=== PATIENT | male | born 1990 | race Caucasian/White ===

== ENCOUNTER 2021-02-18 14:03 | Emergency (ER) | payer OTHER ==
[2021-02-18] MEDS ORDERED: KETOROLAC 60 MG/2 ML VIAL IM STA (14:20)
[2021-02-18 14:35] LABS: BASOPHILS % (AUTO) 0.2 %; EOSINOPHILS % (AUTO) 0.7 %; HGB - HEMOGLOBIN 15.2 g/dL (14.0-18.0); LYMPHOCYTES # (AUTO) 1.8 10^3/uL (1.5-3.5); LYMPHOCYTES % (AUTO) 33.8 %; MEAN CORPUSCULAR HGB CONC 34.5 g/dL (32.0-36.0); MEAN CORPUSCULAR VOLUME 89.6 fL (80.0-94.0); MONOCYTES # (AUTO) 0.4 10^3/uL (0.0-1.0); MONOCYTES % (AUTO) 7.9 %; NEUTROPHILS # (AUTO) 3.1 10^3/uL (1.5-6.6); NEUTROPHILS % (AUTO) 57.2 %; PLT - PLATELET COUNT 205 10^3/uL (130-450); RED BLOOD COUNT 4.91 10^6/uL (4.70-6.10); RED CELL DISTRIBUTION WIDTH 11.9 % (12.0-15.0); WHITE BLOOD COUNT 5.4 x10^3/uL (4.8-10.8)
[2021-02-18] MEDS ORDERED: SODIUM CHLORIDE 0.9% 1,000 ML IV STA (14:35)
[2021-02-18] MEDS ORDERED: HYDROmorphone 1 MG/ML CARPUJECT IVP STA (14:36)
--- NOTE | 2021-02-18 14:41 | ED Physician Documentation ---
History of Present Illness - Stated complaint Stated Complaint: LOW BACK PX - Chief complaint Chief Complaint: Abd Pain - Additonal information Additional information: 30-year-old male brought to the emergency department for evaluation of acute onset right flank pain. Began just a few hours prior to arrival when he was walking at the grocery store and shopping. Denies any recent falls or trauma. He denies any dysuria urgency or frequency. He reports that the pain is worse when he moves and hurts to take a deep breath. No recent travel. No history of hormone use or cancer. No personal history of DVT. No unilateral leg swelling. No surgeries or immobilization. He denies any pertinent past medical history and has no pertinent past surgical history. He does report dark-colored urine. Review of Systems Constitutional: denies: Fever, Chills Eyes: reports: Loss of vision Nose: reports: Reviewed and negative Throat: reports: Reviewed and negative Cardiac: denies: Chest pain / pressure, Palpitations Respiratory: denies: Dyspnea, Cough GI: reports: Abdominal Swelling. denies: Nausea, Vomiting : denies: Dysuria, Frequency, Hesitancy Skin: reports: Reviewed and negative Musculoskeletal: reports: Back pain PD PAST MEDICAL HISTORY - Present Medications Home Medications: Ambulatory Orders Medication Instructions Recorded Confirmed HYDROcod/ACETAM 5/325 [Martin 5/325] 1 tablet PO BID PRN #10 tablet 02/18/21 - Allergies Allergies/Adverse Reactions: Allergies Allergy/AdvReac Type Severity Reaction Status Date / Time No Known Drug Allergies Allergy Verified 02/18/21 14:20 PD ED PE NORMAL - General General: Alert and oriented X 3, No acute distress - HEENT HEENT: PERRL - Neck Neck: Supple, no meningeal sign, Thyroid normal, No JVD - Cardiac Cardiac: RRR, No murmur, No gallop, No rub - Respiratory Respiratory: No respiratory distress, Clear bilaterally - Abdomen Abdomen: Normal bowel sounds, Soft. No: Non tender (Tenderness to the right flank and right CVA region. No guarding or rebound. Worse with movement) - Back Back: No: No CVA TTP (right CVA) - Derm Derm: Normal color, Warm and dry, No rash - Extremities Extremities: No deformity, No tenderness to palpate, Normal ROM s pain - Neuro Neuro: Alert and oriented X 3 Eye Opening: Spontaneous Motor: Obeys Commands Verbal: Oriented GCS Score: 15 Results - Vitals Vitals: Vital Signs - 24 hr 02/18/21 14:18 Temperature 35.5 C L Heart Rate 66 Respiratory 16 Rate Blood Pressure 135/80 H O2 Saturation 99 Oxygen O2 Source Room air - Labs Labs: Laboratory Tests 02/18/21 02/18/21 02/18/21 14:30 14:30 14:35 WBC 5.4 RBC 4.91 Hgb 15.2 Hct 44.0 MCV 89.6 MCH 31.0 MCHC 34.5 RDW 11.9 L Plt Count 205 MPV 10.0 Neut # (Auto) 3.1 Lymph # (Auto) 1.8 [place] # (Auto) 0.4 Eos # (Auto) 0.0 Baso # (Auto) 0.0 Absolute Nucleated RBC 0.00 Nucleated RBC % 0.0 Sodium 136 Potassium 4.2 Chloride 100 L Carbon Dioxide 28 Anion Gap 8.0 BUN 17 Creatinine 1.0 Estimated GFR (MDRD) 89 Glucose 100 Calcium 9.5 Total Bilirubin 1.1 H AST 32 ALT 56 Alkaline Phosphatase 57 Total Protein 8.1 Albumin 5.1 Globulin 3.0 Albumin/Globulin Ratio 1.7 Lipase 37 Urine Color YELLOW Urine Clarity CLEAR Urine pH 6.5 Ur Specific [place] 1.020 Urine Protein NEGATIVE Urine Glucose (UA) NEGATIVE Urine Ketones NEGATIVE Urine Occult Blood NEGATIVE Urine Nitrite NEGATIVE Urine Bilirubin NEGATIVE Urine Urobilinogen 0.2 (NORMAL) Ur Leukocyte Esterase NEGATIVE Ur Microscopic Review NOT INDICATED Urine Culture Comments NOT INDICATED - Rads (name of study) CT abd Radiology: Final report received PD MEDICAL DECISION MAKING - ED course Complexity details: reviewed results, re-evaluated patient, considered differential, d/w patient ED course: 30-year-old male presents emergency department for evaluation of right flank and low back pain that began this afternoon when he was shopping at the grocery store. Denies any recent falls or trauma. He has no fevers. No history of similar in the past. On exam he did have some right flank tenderness however it seemed worse with movement. Given the patient denied any history of falls or trauma or back pain in the past a CT scan was completed. Reassuringly no findings were found of concern. This was noncontrast given history of contrast allergy. Screening labs were essentially unremarkable for age. Urine showed no hematuria or signs of infection. Patient was given Dilaudid here in the emergency department with good improvement in his pain. A limited prescription for Martin will be sent to the pharmacy of advised ibuprofen. Advise close follow-up with [facility]. Emergent return precautions otherwise discussed. I am prescribing a short course of short-acting opioid pain medication for this patient. I have reviewed the patients MEETING FACILITATOR and no concerning findings were noted. I have discussed that the opioids are for short term therapy only, and will not be refilled from the ED. Departure - Departure Disposition: 01 Home, Self Care Clinical Impression: Right flank pain Low back pain Qualifiers: Chronicity: acute Back pain laterality: unspecified Sciatica presence: without sciatica Qualified Code(s): M54.50 - Low back pain, unspecified Condition: Stable Record reviewed to determine appropriate education?: Yes Follow-Up: Provider,Other [Primary Care Provider] - Prescriptions: HYDROcod/ACETAM 5/325 [Martin 5/325] 1 tablet PO BID PRN #10 tablet PRN Reason: Pain Comments: Max odonnell were seen in the emergency department today for sudden pain on the right side of your abdomen and low back. This pain does seem worse with movemen t. Your screening labs today including blood count, electrolytes and chemistry, as well as urine were all essentially unremarkable and normal for age. We did do a CT of the abdomen. No obvious kidney stones or swelling of the kidney was seen. Your appendix was normal. As we discussed at the bedside I suspect that this is simply a muscle strain. I do recommend that you take 600 mg of ibuprofen with food 2-3 times a day. Gentle stretching can be helpful. You need to follow-up with [facility] tomorrow for reevaluation. If at any point you find you are having worsening symptoms, any fevers, obvious blood in your urine, or fainting episodes and please return immediately to the ER. I am prescribing a limited amount of hydrocodone for severe pain only I am prescribing a short course of narcotic pain medication for you. These are potentially dangerous and addictive medications that should be used carefully. These medications may constipate you. Take an yvnm-[id number] stool softener (docusate) twice daily with plenty of water while taking these medications. If you go 24 hours without a bowel movement, take [id number]-rkt-[id number] miralax, per package instructions. Do not drink or drive while taking these medications. If you received narcotic or sedating medications while in the emergency department, do not drive for 24 hours. Store this medication in a safe, secure place and out of reach of children. It is a violation of federal law to give or sell this medication to another person or to use in a manner other than prescribed. The ED will not refill narcotic prescriptions, including prescriptions lost or stolen. To dispose of unwanted medications: 1. [facility] at [address] in [place] has a medication drop box. They accept prescription medications (in pill form) Friday through Friday 9:00 a.m. to 5:00 p.m. 2. The [facility] [employer] accepts prescription medications (in pill form only) for disposal year round. Call for more information. 3. Contact the [facility] for the next [facility] sponsored prescription drug collection event. , [phone], or [phone]; Note that many narcotic pain relievers also contain Tylenol/acetaminophen. Please ensure that your total dose of acetaminophen from all sources does not exceed 3 g (3000 mg) per day.
[2021-02-18 14:46] LABS: BILIRUBIN,URINE NEGATIVE (NEGATIVE); GLUCOSE, URINE (UA) NEGATIVE (NEGATIVE); KETONES,URINE (UA) NEGATIVE (NEGATIVE); LEUKOCYTE ESTERASE, URINE NEGATIVE (NEGATIVE); NITRITE,URINE NEGATIVE (NEGATIVE); OCCULT BLOOD,URINE NEGATIVE (NEGATIVE); PH,URINE 6.5 PH (5.0-7.5); PROTEIN,URINE NEGATIVE (NEGATIVE); UROBILINOGEN,URINE 0.2 (NORMAL) E.U./dL (NORMAL)
[2021-02-18 14:49] LABS: ALBUMIN 5.1 g/dL (3.2-5.5); ALBUMIN/GLOBULIN RATIO 1.7 (1.0-2.2); BILIRUBIN,TOTAL 1.1 mg/dL (0.2-1.0); CALCIUM 9.5 mg/dL (8.5-10.3); POTASSIUM 4.2 mmol/L (3.5-5.0); TOTAL PROTEIN 8.1 g/dL (6.7-8.2)
[2021-02-18 14:57] LABS: CLARITY,URINE CLEAR (CLEAR)
[2021-02-18] MEDS ORDERED: iohexoL-300 100 ML VIAL ONE (15:34)
--- NOTE | 2021-02-18 16:03 | CT Report ---
PROCEDURE: Abdomen/Pelvis WO INDICATIONS: RT FLANK PAIN TECHNIQUE: Noncontrast 5 mm thick sections acquired from the diaphragms to the symphysis. 5 mm coronal and sagi ttal reformats were then performed. For radiation dose reduction, the following was used: automated exposure control, adjustment of mA and/or kV according to patient size. COMPARISON: None. FINDINGS: Image quality: Excellent. ABDOMEN: Lung bases: Lung bases are clear. Heart size is normal. Solid organs: The liver demonstrates normal size and demonstrates no focal lesions. The spleen demons trates normal size. Accessory splenules are seen along the medial aspect of the spleen. Gallbladder w all does not appear thickened. Pancreas is normal in contours. No adrenal nodules. Kidneys are n ormal in size, without hydronephrosis or nephrolithiasis. Peritoneum and bowel: Unenhanced bowel loops demonstrate normal wall thickness and caliber. No free fluid or air. A normal appendix is incidentally noted. Nodes and vessels: No retroperitoneal or mesenteric adenopathy by size criteria. Aorta and inferior vena cava are normal in caliber. Miscellaneous: No ventral hernias. PELVIS: Genitourinary: Bladder wall thickness is normal. Miscellaneous: No inguinal hernias or adenopathy. Bones: No suspicious bony lesions. No vertebral body compression fractures. IMPRESSION: No kidney stones. No hydronephrosis. Incidental note is made of: Accessory splenules Normal appendix Reviewed by: Gio Polanco MD on 02/18/2021 3:02 PM [facility] Approved by: Gio Polanco MD on 02/18/2021 3:02 PM [facility] Station ID: [id number]
[2021-02-18 16:47] VITALS: BP 174/96
== END 2021-02-18 16:50 | disposition home or self-care (01) ==
LOC: ED 14:03
DX: R10.9 Unspecified abdominal pain (principal); M54.50 Low back pain, unspecified
CPT/HCPCS: 36415; 74176; 80053; 81003; 83690; 85025; 96374; 99282; 99284; J1170; 81001; 87086

== ENCOUNTER 2021-11-07 12:35 | Outpatient (CLI) | payer OTHER ==
--- NOTE | 2021-11-07 20:31 | MRI Report ---
PROCEDURE: Wrist RT W/O INDICATIONS: GANGLION CYST TECHNIQUE: Noncontrast coronal T1 spin echo, proton density fast spin echo and T2 fast spin echo with fat satura tion; coronal 3-D gradient echo, axial T1 spin echo and T2 fast spin echo with fat saturation, sagitt al T1 spin echo through the wrist. COMPARISON: None. FINDINGS: Image quality: Excellent. Bones and cartilage: The carpal bones are normally aligned. No bone marrow contusions or fractures. No evidence for avascular necrosis. Overlying cartilage surfaces appear normal. Carpal ligaments: The scapholunate and lunotriquetral ligaments appear intact. In the absence of in tra-articular contrast, the extrinsic carpal ligaments are not well identified. On sagittal images, the pisohamate ligament appears intact. Triangular fibrocartilage complex: The triangular fibrocartilage appears intact. The adjacent menis mylene homolog appears normal in the absence of intra-articular contrast. The extensor carpi ulnaris te ndon is normal in location and morphology. Tendons and soft tissues: The carpal tunnel structures appear normal, including the median nerve. T he ulnar nerve appears normal within Guyon's canal. Mild extensor carpi ulnaris tendinosis. Mild exte nsor pollicis longus tendinosis. The remaining extensor tendon compartments demonstrate normal morpho logy, without pathologic tendon sheath fluid. Elongated thin layer of fluid is seen in the subcutaneo us tissues at the dorsal aspect of the wrist measuring up to 4.1 x 3.0 cm with thickness of approxima tely 0.2 cm. Mild adjacent soft tissue edema is seen. A small ganglion cyst is seen dorsal to the sca pholunate ligament measuring approximately 1.7 x 0.4 x 0.4 cm. IMPRESSION: 1.Superficial fluid collection in the dorsal aspect of the wrist measures up to 4.1 x 3.0 x 0.2 cm. M ild surrounding soft tissue edema is seen, suggesting possible ganglion cyst with prior cyst rupture. 2.Small intra-articular ganglion cyst along the dorsal aspect of the scapholunate ligament measuring 1.7 cm in maximum dimension. 3.Mild extensor carpi ulnaris tendinosis and extensor pollicis longus tendinosis. 4.No acute trabecular bone injury. No significant ligamentous injury. Reviewed by: Prakash Wellington MD on 11/07/2021 8:30 PM PDT Approved by: Prakash Wellington MD on 11/07/2021 8:30 PM PDT Station ID: [id number]
== END 2021-11-07 12:36 | disposition home or self-care (01) ==
LOC: DI 12:35
PROVIDERS: ATTEND Student in an Organized Health Care Education/Training Program
DX: M67.431 Ganglion, right wrist (principal); M67.833 Other specified disorders of tendon, right wrist

== ENCOUNTER 2021-11-19 09:47 | Outpatient (CLI) | payer OTHER ==
--- NOTE | 2021-11-19 13:03 | MRI Report ---
PROCEDURE: Shoulder LT W/O INDICATIONS: PAIN IN LEFT SHOULDER TECHNIQUE: Noncontrast oblique coronal T2 fast spin echo with fat saturation, oblique sagittal T1 spin echo and T2 fast spin echo with fat saturation, axial T1 spin echo and T2 fast spin echo with fat saturation t hrough the shoulder. COMPARISON: None. FINDINGS: Image quality: Excellent Rotator cuff Teres minor: Intact. Supraspinatus: Small articular tear at the footplate. Minor tendinosis. No full-thickness defect. Infraspinatus: Small articular sided tear adjacent to some insertional ganglions. No full-thickness d efect. Minor tendinosis. Subscapularis: Tendinosis. Interstitial tear at the insertion. No significant atrophy. Bones and bursae GH joint: Overall intact cartilage. No high-grade degenerative changes. AC joint: Congruent, without significant degenerative changes. Humeral head: Intact. Scapula and acromion: Intact. Bursa: No significant fluid. Capsule Labrum: Evaluation is limited on this non-arthrographic MRI, within this limitation: No discrete tear . Long head biceps tendon: Intact IGHL: Intact Rotator interval: Fat signal is maintained. Soft tissues: No axillary adenopathy. Lungs are not well seen. IMPRESSION: No significant internal derangement on this limited nonarthrographic study. Minor superi or cuff tears and tendinosis as above. Reviewed by: Cresencio Rogers MD on 11/19/2021 1:02 PM PDT Approved by: Cresencio Rogers MD on 11/19/2021 1:02 PM PDT Station ID: [id number]
== END 2021-11-19 09:48 | disposition home or self-care (01) ==
LOC: DI 09:47
PROVIDERS: ATTEND Student in an Organized Health Care Education/Training Program
DX: M75.112 Incomplete rotator cuff tear or rupture of left shoulder, not specified as traumatic (principal)

== ENCOUNTER 2022-03-04 10:06 | Outpatient (CLI) | payer OTHER ==
--- NOTE | 2022-03-04 11:48 | MRI Report ---
PROCEDURE: LUMBAR SPINE WO INDICATIONS: LOW BACK PAIN TECHNIQUE: Noncontrast sagittal T1 spin echo and T2 fast echo, sagittal STIR, axial T1 and T2 fast spin echo thr ough the lumbar spine. In cases with scoliosis, additional coronal T2 fast spin echo may be performe d. COMPARISON: None. FINDINGS: Image quality: Good Alignment: No malalignment Marrow: No acute fracture. Disc desiccation, most significant at L4-L5. Cord: Cord terminates in normal position. Normal appearance of the cauda equina nerve roots. Soft tissues: No abdominal aortic aneurysm. No paravertebral abscess or hematoma. Specific levels: T12-L1: No stenosis. L1-L2: Mild facet arthropathy. No stenosis. L2-L3: Mild facet arthropathy. Tiny diffuse disc bulge. No stenosis. L3-L4: Mild to moderate diffuse disc bulge and facet arthropathy. Mild bilateral neural foraminal david rowing. L4-L5: Moderate diffuse disc bulge with superimposed left paracentral protrusion. Moderate facet arth ropathy bilaterally. Mild central narrowing, asymmetrically involving the left subarticular recess, s lightly displacing the traversing left L5 nerve root. Mild to moderate left and mild right neural for aminal narrowing. L5-S1: Small diffuse disc bulge and mild facet arthropathy bilaterally. Mild to moderate bilateral ne ural foraminal narrowing. IMPRESSION: Lower lumbar spondylosis, most significant at L4-L5 with a moderate disc bulge and superimposed left paracentral protrusion, slightly displacing the traversing left L5 nerve root. There is also bilatera l neural foraminal narrowing at L4-L5 and L5-S1. Reviewed by: Cresencio Rogers MD on 03/04/2022 11:46 AM PST Approved by: Cresencio Rogers MD on 03/04/2022 11:46 AM PST Station ID: [id number]
== END 2022-03-04 10:07 | disposition home or self-care (01) ==
LOC: DI 10:06
PROVIDERS: ATTEND Student in an Organized Health Care Education/Training Program
DX: M47.816 Spondylosis without myelopathy or radiculopathy, lumbar region (principal); M51.36 Other intervertebral disc degeneration, lumbar region; M51.37 Other intervertebral disc degeneration, lumbosacral region; M47.817 Spondylosis without myelopathy or radiculopathy, lumbosacral region; M51.16 Intervertebral disc disorders with radiculopathy, lumbar region

== ENCOUNTER 2023-05-02 14:47 | Outpatient (CLI) | payer OTHER ==
--- NOTE | 2023-05-02 16:59 | MRI Report ---
PROCEDURE: Lumbar Spine WO INDICATIONS: LOW BACK PAIN TECHNIQUE: Noncontrast sagittal T1 spin echo and T2 fast echo, sagittal STIR, axial T1 and T2 fast spin echo thr ough the lumbar spine. In cases with scoliosis, additional coronal T2 fast spin echo may be performe d. COMPARISON: 03/04/2022. FINDINGS: Image quality: Excellent. Alignment and Curvature: There is normal bony alignment. Bone Marrow: Marrow is of normal overall signal. No acute vertebral body compression fractures. Spinal Cord: Conus medullaris terminates at the L1-L2 level. Visualized cord demonstrates normal si gnal and size. Paraspinous Soft Tissues: No paravertebral masses. T12-L1: Normal in appearance. L1-L2: Normal in appearance. L2-L3: Normal in appearance. L3-L4: Interval slight disc desiccation and disc height loss. Disc bulge is similar to before. Mild facet hypertrophy. Borderline canal stenosis. Mild bilateral foraminal stenosis L4-L5: Interval development of mild disc height loss. Broad-based mild left paracentral disc protru josias is similar to previous, with mild posterior deviation of the left L5 nerve root in the left late ral recess. There is unchanged mild canal stenosis. There is facet hypertrophy. There is mild bilater al foraminal stenosis. L5-S1: Unchanged findings. Minimal disc bulge. Mild facet hypertrophy. No canal stenosis. Mild bila teral foraminal stenosis. IMPRESSION: 1. Other than interval development of mild disc height loss at L3-L4 and L4-L5, findings are stable. 2. At L4-L5, there is unchanged mild broad-based left paracentral disc bulge with mild posterior laura ation of the left L5 nerve root in the left lateral recess and mild canal stenosis. 3. Relatively mild lower lumbar facet arthropathy. Reviewed by: Vel Conrad MD on 05/02/2023 4:58 PM PDT Approved by: Vel Conrad MD on 05/02/2023 4:58 PM PDT Station ID: [id number]
== END 2023-05-02 14:48 | disposition home or self-care (01) ==
LOC: DI 14:47
PROVIDERS: ATTEND Family Medicine
DX: M51.36 Other intervertebral disc degeneration, lumbar region (principal); M48.061 Spinal stenosis, lumbar region without neurogenic claudication; M47.816 Spondylosis without myelopathy or radiculopathy, lumbar region

== ENCOUNTER 2023-08-18 20:46 | Emergency (ER) | payer OTHER ==
[2023-08-18 20:59] VITALS: BP 147/79; O2SAT 99
--- NOTE | 2023-08-18 21:07 | ED Physician Documentation ---
History of Present Illness - Stated complaint Stated Complaint: RASH - Chief complaint Chief Complaint: General - History obtained from History obtained from: Patient - Additonal information Additional information: He got out of the shower víctor noticed a rash on his left chest. His roommate thought it was shingles. The rash is gone now. He shows me a picture of the left upper anterior chest wall that has some nonspecific redness on it, it has disappeared. PD PAST MEDICAL HISTORY - Past Medical History Past Medical History: Yes Musculoskeletal: Chronic back pain - Past Surgical History Ortho: Shoulder arthroplasty - Present Medications Home Medications: Ambulatory Orders Medication Instructions Recorded Confirmed No Known Home Medications 08/18/23 08/18/23 - Allergies Allergies/Adverse Reactions: Allergies Allergy/AdvReac Type Severity Reaction Status Date / Time iodine Allergy Rash Verified 08/18/23 20:57 shellfish derived Allergy Rash Verified 08/18/23 20:57 - Social History Does the pt smoke?: No Smoking Status: Never smoker Does the pt drink ETOH?: No Does the pt have substance abuse?: No - Immunizations Immunizations are current?: Yes PD ED PE NORMAL - Vitals Vital signs reviewed: Yes - General General: Alert and oriented X 3, No acute distress - Derm Derm: Other (He is examined in bright light with his shirt off, there is no rash anywhere on the anterior nor posterior thoracic wall at this point.) - Neuro Neuro: Alert and oriented X 3, Normal speech Results - Vitals Vitals: Vital Signs - 24 hr 08/18/23 20:51 Temperature 36.3 C L Heart Rate 78 Respiratory 15 Rate Blood Pressure 147/79 H O2 Saturation 99 Oxygen O2 Source Room air Departure - Departure Disposition: Home, Self Care Clinical Impression: Rash Condition: Good Record reviewed to determine appropriate education?: Yes Instructions: ED Erythema Comments: I suspect he had a histamine release in the hot shower. There is no evidence of persistent rash so that rules out shingles. Return for new or worsening symptoms. Forms: PCP List Discharge Date/Time: 08/18/23 21:12
== END 2023-08-18 21:12 | disposition home or self-care (01) ==
LOC: ED 20:46
DX: R21 Rash and other nonspecific skin eruption (principal)
CPT/HCPCS: 99281; 99282